=== PATIENT | male | born 1960 | race Caucasian/White ===

== ENCOUNTER 2016-11-23 06:16 | Day surgery (SDC) | payer OTHER ==
[2016-11-18 16:50] LABS: HEMATOCRIT 42.7 % (40.0-51.0); HEMOGLOBIN 14.8 g/dL (13.6-17.8)
--- NOTE | ~2016-11-23 | OP ---
Record Of Operation [facility] [address] [place]. 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 POSTOPERATIVE DIAGNOSIS: Thick level malignant melanoma of the right parietal scalp, previously excised. PROCEDURE PERFORMED: 1. Re-excision right parietal scalp, thick level malignant melanoma. 2. Complex layered closure of 9 x 5 cm defect, partial closure. 3. Split-thickness skin graft closure of residual 3 x 4 cm central wound defect. 4. Outer table craniectomy. 5. [place] lymph node biopsy, deep cervical lymph node, right postauricular. 6. Deep cervical lymph node biopsy. [place] lymph node right level 5, multiple nodes in level 5. 7. [place] lymph node biopsy, deep cervical lymph node of right supraclavicular, level 4 lymph node. FINDINGS: [place] lymph node results as follows: The sentinel lymph node #1 right postauricular 1557; sentinel lymph node #2 right postauricular 190; sentinel lymph node #3 right postauricular 327; sentinel lymph node #4 right level 5, 3363; sentinel lymph node #5 right level 5, 1477; sentinel lymph node #6 right level 5, 1488; sentinel lymph node #7 right level 5, 2945; and sentinel lymph node #8 was right supraclavicular fossa level 5, 768. 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 This was excised initially in the office by Dr. Sykes, found to have positive deep and peripheral margins. Risks, benefits, and alternatives to re excision with skin graft reconstruction and sentinel lymph node biopsy were explained and he agreed. PROCEDURE IN DETAIL: The patient was identified in preoperative holding, taken back to the operating room and placed supine on the operating room table. A time-out was called, the patient and procedure were confirmed. The lymphatic mapping films were reviewed with the cable television line technician and on the screen. He was then prepped and draped in a standard fashion for the operation. This started with shaving his scalp on the right side around the area of the farhana. The 2 cm margin was marked around the incision on either side in an elliptical fashion and infiltrated subcutaneously with 5 mL 1% lidocaine with 1:100,000 epinephrine. The Neoprobe was then used to identify the hernán basins, right postauricular, right upper level 5, and then right supraclavicular. These areas were outlined with surgical marking pen and infiltrated subcutaneously with 1% lidocaine with 1:100,000 epinephrine as well. He was then prepped and draped in a standard fashion for the operation. Using 2.5 x loupe magnification and headlight illumination, the operation commenced. Initially, the right scalp was excised around the premarked area through the skin down to the galea to the Record Of Operation [address] [address] NAME: MIKAEL SARAVIA : 58 STATUS : [facility]#: [id number] AGE: 56 ADM/REG DATE : 11/23/16 MR#: [id number] REPORT SERV DATE: 11/23/16 DICTATED BY: ALISON COTTRELL DATE: 11/23/16 REPORT STATUS : Draft TRANSCRIBED BY: TONIE DATE: 11/23/16 periosteum. Subperiosteal dissection performed since margins were close preoperatively. The periosteum was taken as a deep margin and then the specimen was stitched at 12 o'clock superior and 3 o'clock anterior and Pathology was oriented. The wound was then inspected, there was no periosteum left. Within the wound, the area dissected. Outer table craniectomy was then performed with a cutting bur and the central portion of the scalp wound. We took down the outer table down to the diploic space for skin grafting. We were able to undercut the galea and upper and lower portions of the scalp to provide some flexibility and relaxation, so that the 3 o'clock and 9 o'clock edges of the wound could be reapproximated with [id number] 1.0 Prolene suture. The initial wound was 9 x 5 cm. The wound that we closed ultimately with the skin graft was 3 x 4 cm. This area had a nice diploic space for bleeding and blood supply for the skin graft. Skin graft was harvested at 0.022 inch and it was on the right side. That was meshed and inset to the wound with 4-0 chromic suture. Xeroform gauze bolster was placed and secured with 2-0 silk sutures. We then performed a sentinel lymph node biopsies. An incision was made right postauricular to the right upper level 5 region to try incorporate both of these basins in 1 incision. The postauricular lymph nodes were excised and 3 of them were found, the hottest 1557, the second sentinel lymph node was 190, and the third sentinel lymph node was 327. The right upper level 5 basin was then dissected and these levels were 3363, 1477, 1488, and 2945. We then went down to the right supraclavicular fossa low level 5 and removed the final hot lymph node that measured 768 on the probe. This was done by making a small skin incision through the platysma and dissecting down into the supraclavicular fossa lymphatic tissue. Both wounds were irrigated with saline and closed in layers using 3-0 Vicryl and 5-0 running Monocryl. The patient was then awakened and taken to recovery in stable condition. During the dissection, the facial nerve monitor was used throughout to whole dissection and there was no activity within the facial nerve when we were dissecting in the parotid tail. There was no activity of the right shoulder while we were dissecting the posterior triangle. No paralytics were used throughout the case. PH/MODL Alison Cottrell M.D. / [id number] CC: Alison Cottrell M.D.
[~2016-11-23 06:16] MED LIST: *DENIES
== END 2016-11-23 16:16 | disposition home or self-care (01) ==
LOC: SDC 06:16
PROVIDERS: Specialist
PROC: 00J Central Nervous System and Cranial Nerves, Inspection (ICD-10-PCS; 2016-11-23)
PROC: 0HR0X74 Replacement of Scalp Skin with Autologous Tissue Substitute, Partial Thickness, External Approach (ICD-10-PCS; 2016-11-23)
PROC: 0HB0XZZ Excision of Scalp Skin, External Approach (ICD-10-PCS; 2016-11-23)
PROC: 07B10ZX Excision of Right Neck Lymphatic, Open Approach, Diagnostic (ICD-10-PCS; 2016-11-23)
PROC: 0HB0XZZ Excision of Scalp Skin, External Approach (ICD-10-PCS; principal; 2016-11-23 09:45)
DX: C43.4 Malignant melanoma of scalp and neck (principal); Z98.890 Other specified postprocedural states
CPT/HCPCS: 36415; 78195; 85014; 85018; 88305; 88307; 88341; 88342; 93005; A9270-GY; A9541; J0330; J0690; J2250; J2405; J3010; Q4116

== ENCOUNTER 2016-12-01 05:48 | Day surgery (SDC) | payer OTHER ==
--- NOTE | ~2016-12-01 | OP ---
Record Of Operation [facility] [address] [place]. [address] NAME: MIKAEL SARAVIA : 58 STATUS : REG [facility] PAT#: [id number] AGE: 56 ADM/REG DATE : 12/01/16 MR#: [id number] REPORT SERV DATE: 12/01/16 DICTATED BY: ALISON COTTRELL DATE: 12/01/16 REPORT STATUS : Draft TRANSCRIBED BY: MODL DATE: 12/01/16 DATE OF PROCEDURE: 12/01/2016 PREOPERATIVE DIAGNOSIS: Malignant melanoma of the right parietal scalp with positive satellite margin at 5 o'clock margin. POSTOPERATIVE DIAGNOSIS: Malignant melanoma of the right parietal scalp with positive satellite margin at 5 o'clock margin. PROCEDURE PERFORMED: Re-excision of a 5-6 o'clock satellite positive margin malignant melanoma with outer table craniectomy. SURGEON: Alison Cottrell M.D. DIRECTOR EMERGENCY DEPARTMENT: None. ANESTHESIA: General. COMPLICATIONS: None. CONDITION: Stable to recovery. INDICATIONS: A 56-year-old male with a history of malignant melanoma of the right parietal scalp, who underwent excision in the office for diagnosis by Dr. Torrie Sykes. The specimen was noted to be a thick level melanoma with positive deep and peripheral margins. This was re-excised under general anesthesia and widely clear margins except for a satellite margin positive at the 5 o'clock to 6 o'clock portion of the wound. The risks, benefits, and alternatives to re-excision of this focally positive margin were explained and he agreed. PROCEDURE IN DETAIL: The patient was identified in the preoperative holding and taken back to the operating room, and placed supine on the operating room table. General anesthesia was established. A time-out was called, the patient and procedure were confirmed. He was prepped and draped in a standard fashion for the operation. The bolster dressing was removed and the skin graft showed 100% take. The Prolene sutures were removed as well. The area of the surgical site was inspected and a surgical marking pen was used to torrie a 1 cm margin of tissue from the 4 o'clock to 7 o'clock margin to be sure and incorporate the 5-6 o'clock portion of the wound which had the focally positive satellite. This area was infiltrated subcutaneously with 1% lidocaine with 1:100,000 epinephrine. A 15 blade was used to excise the lesion in the premarked area. Needle tip cautery was used for hemostasis. There was some bone exposure deep to this. The cutting bur was used to perform outer table craniectomy along the lower margin of the wound down to the diploic space where there was good blood supply noted. The wound was reapproximated at the 3 o'clock margin with interrupted 1-0 [id number] Prolene suture. The skin graft which had been detached from the lower edge of the wound was draped down onto the diploic space and a bolster graft was placed and secured with 6 separate 2-0 silk sutures. The bolster was made of a saline- soaked cotton and Xeroform gauze. Dermabond was placed on the portions of the wound that Record Of Operation [address] [address] NAME: MIKAEL SARAVIA : 58 STATUS : REG [facility] [place] PAT#: [id number] AGE: 56 ADM/REG DATE : 12/01/16 MR#: [id number] REPORT SERV DATE: 12/01/16 DICTATED BY: ALISON COTTRLEL DATE: 12/01/16 REPORT STATUS : Draft TRANSCRIBED BY: MODL DATE: 12/01/16 were closed with sutures, and the patient was awakened and taken to recovery in stable condition. We also changed his right thigh donor site Tegaderm. PH/MODL Alison Cottrell M.D. / [id number] CC: Alison Cottrell M.D.
== END 2016-12-01 13:56 | disposition home or self-care (01) ==
LOC: SDC 05:48
PROVIDERS: Specialist
PROC: 0HB0XZZ Excision of Scalp Skin, External Approach (ICD-10-PCS; principal; 2016-12-01 07:45)
DX: C43.4 Malignant melanoma of scalp and neck (principal); I96 Gangrene, not elsewhere classified; Z98.890 Other specified postprocedural states
CPT/HCPCS: 88305; J0690; J2250; J2405; J2710; J3010